=== PATIENT | male | born 1945 | race Caucasian/White ===

== ENCOUNTER 2020-06-11 18:50 | Inpatient (IN) | payer MEDICARE, OTHER ==
[2020-06-11 19:10] LABS: #Eosinphils 0.1 thou/uL (0.0-0.7); #Lymphocytes 1.3 thou/uL (1.20-3.40); #Monocytes 1.2 thou/uL (0.11-0.59); #Neutrophils 14.5 thou/uL (1.40-6.50); %Basophils 0.2 % (0.0-1.0); %Eosinophils 0.3 % (0.0-10.0); %Lymphocytes 7.7 % (21.0-51.0); %Monocytes 6.7 % (0.0-10.0); Hemoglobin 13.3 g/dL (14.0-18.0); Mean Corpuscular Hemoglobin 30.2 pg (27.0-31.0); Mean Corpuscular Volume 91.4 fL (78.0-98.0); Mean Platelet Volume 7.5 fL (7.4-10.4); Platelet Count 215 thou/uL (130-400); RBC Distribution Width 12.8 % (11.5-14.5); Red Blood Cell (RBC) Count 4.42 mill/uL (4.70-6.10); White Blood Cell (WBC) Count 17.1 thou/uL (4.8-10.8)
--- NOTE | 2020-06-11 19:14 | RAD ---
RIGHT WRIST TWO VIEWS: 06/11/20 HISTORY: Fell from a ladder. There is a comminuted intra-articular fracture of the distal radius and an associated ulnar styloid f racture. The distal radial fracture is minimally displaced. No significant angulation. IMPRESSION: Distal radial and ulnar styloid fractures. POS: CRISTIN
[2020-06-11 19:19] LABS: INR-International Normal Ratio 1.2; Prothrombin Time 15.3 sec (12.0-14.7)
--- NOTE | 2020-06-11 19:19 | RAD ---
PORTABLE CHEST: 06/11/20 HISTORY: Patient fell from a ladder. Epigastric and left upper quadrant abdomen pain, abdomen distended. Patie nt has a splenic laceration and liver laceration by history. Previous CT is not available for compari son. Heart size appears slightly enlarged. There is left sided rib fractures of the 4th, 5th, 6th, and 7th ribs possibly also the 8th rib. No pneumothorax. Film is of suboptimal inspiration. Some increased l tien markings in both lung anne could be on the basis of pulmonary contusion. Infiltrates are not ex cluded. IMPRESSION: 1. Cardiomegaly. 2. Left sided rib fractures. No pneumothorax identified. 3. Parenchymal lung changes probably on the basis of poor inspiration but contusion or infiltrat es are not excluded. POS: CRISTIN
[2020-06-11] MEDS ORDERED: Cyclobenzaprine 10 MG TAB ONE (19:20)
[2020-06-11 19:24] LABS: Bilirubin Negative (Negative); Blood, Urine Trace (Negative); Clarity Clear (Clear); Glucose, Urine (Dipstick) Normal (Negative); Ketone, Urine Negative (Negative); Leukocyte Negative Leu/uL (Negative); Nitrite Negative (Negative); Protein, Urine (Dipstick) 20 mg/dL (Neg-Trace); Squamous Epithelial 0-3 HPF (0-3); Urobilinogen Normal mg/dL (Less than 2); pH, Urine 5.5 (5.0-9.0)
[2020-06-11 19:30] LABS: ALT (SGPT) 29 U/L (8-55); AST (SGOT) 41 U/L (5-34); Albumin 3.7 g/dL (3.4-4.8); Alkaline Phosphatase 62 U/L (40-110); Anion Gap 13 mmol/L (10-20); BUN (Urea Nitrogen) 13 mg/dL (8.4-25.7); Bilirubin, Total 0.5 mg/dL (0.2-1.2); Calc. Creatinine Clearance 0 mL/min (70-130); Calcium 8.2 mg/dL (7.8-10.44); Carbon Dioxide 19 mmol/L (23-31); Chloride 112 mmol/L (98-107); Globulin 2.9 g/dL (2.4-3.5); Glucose 110 mg/dL (83-110); Potassium 4.3 mmol/L (3.5-5.1); Protein, Total 6.6 g/dL (5.8-8.1); Sodium 140 mmol/L (136-145)
[2020-06-11 19:31] LABS: Specific Gravity, Urine 1.056 (1.002-1.036)
[2020-06-11 19:32] LABS: Bacteria/HPF None Seen HPF (None Seen); Transitional Epithelial 0-3 HPF (None Seen)
[2020-06-11] MEDS ORDERED: Diazepam 5 MG TAB ONE (19:50)
[2020-06-11] MEDS ORDERED: Dextrose 50% Abboject 50 ML SYRINGE SLOW IVP PRN (20:16)
[2020-06-11] MEDS ORDERED: Ondansetron ODT 4 MG TAB PO PRN (20:16)
[2020-06-11] MEDS ORDERED: Dextrose 5% in Water 1,000 ML IV PRN (20:16)
[2020-06-11] MEDS ORDERED: Ondansetron PF 4 MG/2 ML Vial IVP PRN (20:16)
[2020-06-11] MEDS: Sodium Chloride 0.9% 1,000 ML IV SCH (20:36)
[2020-06-11 20:46] LABS: Hemoglobin 12.4 g/dL (14.0-18.0)
[2020-06-11] MEDS: Gabapentin 300 MG CAP PO SCH (20:58)
[2020-06-11] MEDS ORDERED: Famotidine 20 MG TAB ONE (21:07)
[2020-06-11] MEDS ORDERED: Acetaminophen 325 MG TAB ONE (21:07)
[2020-06-11] MEDS: Famotidine 20 MG TAB PO SCH (21:09)
[2020-06-11] MEDS: Acetaminophen 325 MG TAB PO SCH (21:09)
--- NOTE | 2020-06-11 21:38 | HP ---
REQUESTING PHYSICIAN: Dr. Silverman. ATTENDING SURGEON: Dr. Gonsalves. CONSULTATIONS: Orthopedics, Dr. Bhatia. HISTORY OF PRESENT ILLNESS: The patient is a 75-year-old man who was flown here by air ambulance from [place] after a fall from a ladder that was up on 5 foot deck and he was approximately 3 feet up on the ladder. He lost his balance, fell, hit the railing and then landed on the ground. He was brought to the emergency department at [facility] in [place], where he underwent evaluation. On examination, he was noted to have multiple left-sided rib fractures, small amount of free fluid in his abdomen and suspected grade 1 spleen and liver lacerations. At which time, he was brought to our facility as a level 2 trauma activation. Prior to him departing [place], it was noted that his blood pressure dropped and he received 2 units of packed red blood cells. Since receiving the blood products, his vital signs have remained stable. He denies loss of consciousness and reportedly had a [place] Coma Scale of 15 on the scene and has since remained that way. ALLERGIES: NONE. CURRENT MEDICATIONS: The patient reports that he does not have his list with him and that his is bringing it, but he only takes an aspirin regarding blood thinners, takes blood pressure medicine and a prostate medicine. PAST MEDICAL HISTORY: Hypertension, bladder cancer, BPH, Agent [place] exposure and PTSD. PAST SURGICAL HISTORY: Multiple bladder tumor removals, cataract surgery, bilateral rotator cuff surgeries, rhinoplasty, incision and drainage of MRSA on the thigh, spinal stenosis decompression, and cardiac stent. SOCIAL HISTORY: The patient lives at home with his spouse. He quit smoking greater than 40 years ago. Occasional alcohol and no drugs. REVIEW OF SYSTEMS: A 10-point review of systems is negative except otherwise stated. PHYSICAL EXAMINATION: VITAL SIGNS: Blood pressure 122/74, heart rate 79, respirations 20, oxygen saturation 100% on room air, and temperature is 97.9. GENERAL: The patient is resting comfortably in bed. He is awake, alert, conversant, appropriate. [place] Coma Scale is 15. HEENT: Head is normocephalic and atraumatic. Eyes, extraocular motion intact. PERRLA bilaterally. Ears are atraumatic without discharge. Nose is atraumatic without discharge. Oropharynx is clear. NECK: Nontender. Trachea is midline with no JVD. CHEST: Clear to auscultation with good inspiratory and expiratory effort. HEART: Regular rate and rhythm. ABDOMEN: Soft, flat, nontender with no gross peritoneal signs. Positive bowel sounds. Left lateral chest wall has tenderness to palpation consistent with his fractures. PELVIS: Stable. EXTREMITIES: Neurovascularly intact x4. Right upper extremity has a dorsal splint in place. BACK: Atraumatic and nontender to the midline. He does have posterior lateral left-sided pain consistent with his rib fractures. LABORATORY FINDINGS: White blood cell count 17.1, hemoglobin 13.3, hematocrit 40.4, platelets 215. Sodium 140, potassium 4.3, chloride 112, CO2 of 19, BUN 13, creatinine 1.30, glucose 110. LFTs are unremarkable. INR 1.2. Urinalysis: Rbc's 11 to 20, wbc's 7 to 10, no bacteria, no nitrite or LE. RADIOGRAPHIC REPORTS: AP chest x-ray shows cardiomegaly, left-sided rib fractures, no pneumothorax. Parenchymal lung changes probably on the basis of poor inspiration, but contusion or infiltrate are not excluded. Views of the right wrist show distal radius and ulnar styloid fractures with articular component. CT of the brain without contrast shows no acute intracranial process. CT of the C-spine without contrast shows no significant CT evidence of acute intracranial or cervical spine injury. CT of the chest, abdomen, and pelvis with IV contrast shows heterogeneous free fluid demonstrated adjacent to the spleen. However, no clearly identifiable active extravasation is present on this exam. FINDINGS: 1. Suspicious for possible splenic laceration with adjacent hemorrhage. Free fluid also surrounds the liver. However, no clearly identifiable hepatic laceration or active extravasation is noted. 2. Minimally displaced posterior left 6th through 8th rib fractures. 3. Multiple chronic findings. ASSESSMENT: 1. Status post fall from approximately 8 feet. 2. Left ribs 6 through 8 fractures. 3. Intraabdominal free fluid with suspicion for splenic and liver injuries. 4. Acute blood loss anemia, received 2 units of packed red blood cells at [facility]. 5. Acute pain secondary to above. 6. Right distal radius and ulnar fracture. PLAN: 1. Plan will be to admit the patient to the surgical floor. We will do pain control, pulmonary toilet, gastritis and mechanical VTE prophylaxis. 2. We will keep the patient n.p.o. with the exception of sips for p.o. medications, serial hemoglobin and hematocrit throughout the night. Gentle hydration. Orthopedic consultation and await their decision if this requires surgery. Tomorrow, we will begin physical and occupational therapy and discuss placement at that time. The patient was evaluated in the emergency department with Dr. Gonsalves. Job ID: [id number]
[2020-06-11] MEDS: Ketorolac Tromethamine 30 MG/ML VIAL IVP SCH (22:28)
[2020-06-11] MEDS: traMADol HCl 50 MG TAB PO SCH (22:29)
[2020-06-11] MEDS: traMADol HCl 50 MG TAB PO PRN (22:29)
[2020-06-11 22:50] VITALS: BMI 26.4
[2020-06-12 05:09] LABS: #Basophils 0.1 thou/uL (0.0-0.2); #Eosinphils 0.2 thou/uL (0.0-0.7); #Lymphocytes 1.7 thou/uL (1.20-3.40); #Monocytes 1.3 thou/uL (0.11-0.59); #Neutrophils 7.2 thou/uL (1.40-6.50); %Basophils 0.6 % (0.0-1.0); %Lymphocytes 15.9 % (21.0-51.0); %Monocytes 12.5 % (0.0-10.0); Hemoglobin 11.5 g/dL (14.0-18.0); Mean Corpuscular HGB CONC 33.8 g/dL (32.0-36.0); Mean Corpuscular Hemoglobin 31.4 pg (27.0-31.0); Mean Corpuscular Volume 92.8 fL (78.0-98.0); Mean Platelet Volume 7.6 fL (7.4-10.4); Platelet Count 162 thou/uL (130-400); RBC Distribution Width 12.9 % (11.5-14.5); Red Blood Cell (RBC) Count 3.67 mill/uL (4.70-6.10); White Blood Cell (WBC) Count 10.4 thou/uL (4.8-10.8)
[2020-06-12 05:32] LABS: ALT (SGPT) 24 U/L (8-55); AST (SGOT) 33 U/L (5-34); Albumin 3.3 g/dL (3.4-4.8); Alkaline Phosphatase 49 U/L (40-110); BUN (Urea Nitrogen) 14 mg/dL (8.4-25.7); Bilirubin, Total 0.4 mg/dL (0.2-1.2); Calc. Creatinine Clearance 57 mL/min (70-130); Calcium 7.7 mg/dL (7.8-10.44); Carbon Dioxide 19 mmol/L (23-31); Chloride 113 mmol/L (98-107); Globulin 2.4 g/dL (2.4-3.5); Glucose 93 mg/dL (83-110); Magnesium 1.8 mg/dL (1.6-2.6); Phosphorus 3.5 mg/dL (2.3-4.7); Potassium 4.1 mmol/L (3.5-5.1); Protein, Total 5.7 g/dL (5.8-8.1); Sodium 141 mmol/L (136-145)
[2020-06-12] MEDS: Acetaminophen 325 MG TAB PO SCH ×4 (05:40→20:32)
[2020-06-12] MEDS: traMADol HCl 50 MG TAB PO SCH ×4 (05:41→23:35)
[2020-06-12] MEDS: traMADol HCl 50 MG TAB PO PRN ×3 (05:41→17:26)
[2020-06-12] MEDS: Ketorolac Tromethamine 30 MG/ML VIAL IVP SCH (05:42)
[2020-06-12] MEDS: Sodium Chloride 0.9% 1,000 ML IV SCH (05:44)
[2020-06-12 05:55] LABS: Anion Gap 10 mmol/L (10-20)
--- NOTE | 2020-06-12 07:53 | RAD ---
RADIOGRAPH CHEST 1 VIEW: DATE: 06/12/2020 TIME: 7:29 AM HISTORY: 75-year-old male status post acute chest trauma, fall from ladder. Follow-up pulmonary contusion. COMPARISON: 06/11/2020 FINDINGS: Slightly displaced fractures of left posterior lateral fourth, fifth, sixth, and seventh ribs again n oted. Mild ill-defined faint pulmonary densities on the left may represent pulmonary contusions. No pneumot horax or cardiomegaly. Lateral costophrenic angles are sharp. Allowing for deeper inspiration on the current study, there is probably no interval change. IMPRESSION: 1) multiple acute, traumatic, mildly displaced left rib fractures. 2.) Mild pulmonary parenchymal densities on the left, probably mild pulmonary contusions. 3) no definite interval change.
[2020-06-12] MEDS: Famotidine 20 MG TAB PO SCH ×2 (09:23→20:31)
[2020-06-12] MEDS: Diazepam 2 MG TAB PO PRN (09:24)
[2020-06-12] MEDS: Gabapentin 300 MG CAP PO SCH ×3 (09:24→20:32)
--- NOTE | 2020-06-12 10:42 | CON ---
DATE OF CONSULTATION: CHIEF COMPLAINT: Fall from ladder. HISTORY OF PRESENT ILLNESS: Mr. Ruffin is a 75-year-old male who was flown here from [place] after a fall from a ladder. He was up approximately 8 feet. He lost his balance and fell to his left side. His left arm was under him. His right wrist was injured. He was thought to have a liver laceration, and therefore, was transferred. The patient has been hemodynamically stable. He did receive 2 units of blood prior to leaving [place]. He is complaining of left shoulder and rib pain today. Otherwise, he feels good. ALLERGIES: NONE. MEDICATIONS: The patient takes; 1. Aspirin. 2. Blood pressure medication. 3. Prostate medication. PAST MEDICAL HISTORY: Hypertension, history of bladder cancer, BPH, PTSD. PAST SURGICAL HISTORY: Bladder tumor removal, cataract surgery, rotator cuff surgeries bilaterally, rhinoplasty, MRSA infection drainage, spinal stenosis decompression, and cardiac stent placement. SOCIAL HISTORY: The patient lives at home. He denies tobacco, alcohol, or drug use. REVIEW OF SYSTEMS: Positive for left shoulder pain and posterior chest wall pain. Otherwise, he denies 10-point review of systems. PHYSICAL EXAMINATION: VITAL SIGNS: Temperature is 97.8, pulse is 63, respiratory rate of 16, blood pressure 114/69. GENERAL: He is alert, oriented, in no apparent distress, lying supine. HEENT: Normocephalic and atraumatic. RESPIRATORY: Breathing comfortably. ABDOMEN: Soft, nontender, nondistended. MUSCULOSKELETAL: The patient has severe pain in the left shoulder with any movement. His hand and wrist are neurovascularly intact with palpable radial pulses. His right wrist is splinted. His hand is warm and well perfused. The lower extremities are atraumatic. IMAGING: Right wrist x-rays demonstrate a minimally displaced distal radial fracture, which is extra-articular. Left shoulder x-rays are pending. Chest x-ray demonstrates possible left-sided rib fractures, these are difficult to visualize, however. Reportedly, he has a CT scan that has demonstrated posterior left rib fractures, multiple. IMPRESSION: Status post fall from ladder with left posterior rib fractures, right distal radius fracture with minimal displacement, and liver and spleen laceration. PLAN: At this point, the patient can mobilize out of bed. He can continue his current splint for his right arm, we may change this tomorrow if it is fitting poorly. He will be treated nonoperatively for his distal radius. We would recommend repeat x-ray in approximately 1 week to ensure that he has had no further displacement. I will order left shoulder x-rays to be sure he does not have a shoulder injury. I think his pain is likely coming from his rib fractures at this point. We will continue to follow. Job ID: [id number]
--- NOTE | 2020-06-12 11:25 | RAD ---
LEFT SHOULDER 2 VIEWS: Date: 06/12/2020 AP projections are inadequate. An internally rotated view only was obtained. HISTORY: injury with pain FINDINGS: Postoperative changes are noted with two radiopaque anchors overlying the humeral head. AC joint is n ormally aligned. Humerus head is normally positioned. There are left rib fractures. Mildly displaced fracture noted involving posterolateral left fourth an d fifth ribs. IMPRESSION: No evidence of acute fracture or dislocation, although externally rotated view not obtained. Rib frac tures are noted as described on chest exam. POS: AGW
[2020-06-12] MEDS: Ibuprofen 600 MG TAB PO SCH ×2 (14:58→20:32)
--- NOTE | 2020-06-12 15:15 | PRG ---
DATE OF SERVICE: 06/12/2020 SUBJECTIVE: The patient is hospital day 2, status post fall from ladder, in which he sustained multiple left-sided rib fractures and injury to his liver and spleen. Overnight, he did well. He did have some discomfort this morning, primarily of his left shoulder, which was evaluated by Orthopedics, who ordered radiographs of his left shoulder. PHYSICAL EXAMINATION: VITAL SIGNS: Temperature 97.8, heart rate 63, blood pressure 114/69, respirations 17, oxygen saturation is 98% on room air. GENERAL: The patient is resting comfortably in bed. He did need to be adjusted in the bed itself as he was sliding out of it, which probably contributed to his ribs hurting more, but otherwise he is awake, alert, and oriented. Wil[place] Coma Scale is 15. HEENT: Unremarkable. LUNGS: Clear to auscultation, which once the patient was sat up, he was able to take much better inspiration and expiration. HEART: Regular rate and rhythm. ABDOMEN: Soft, nontender with active bowel sounds. EXTREMITIES: Neurovascularly intact x4. Right upper extremity has a dorsal splint in place. LABORATORY FINDINGS: White blood cell count 10.4, hemoglobin 11.5, hematocrit 34.0, platelets 162. Sodium 141, potassium 4.1, chloride 113, CO2 of 19, BUN 14, creatinine 1.21, glucose 93. LFTs are unremarkable. RADIOGRAPHIC FINDINGS: AP chest x-ray shows no definite interval change. Views of the left shoulder showed no evidence of fracture or dislocation. ASSESSMENT AND PLAN: 1. Status post fall from ladder, approximately 8 feet. 2. Left ribs 6 through 8 fractures. 3. Intraabdominal free fluid with suspicion for splenic or liver injuries, stable. 4. Acute blood loss anemia, stable. 5. Acute pain secondary to above, we will make adjustments to his pain regimen. 6. Right distal radius and ulna fractures. Per Orthopedics, this will be treated nonoperatively. Plan will be to continue supportive care. We will begin the patient diet today. Adjust his pain medications. Transition all medications to oral. Encourage physical and occupational therapy, and tomorrow discuss placement. Of note, the patient was brought here from [place] and we will advise Case Management that he will likely need to be placed in that area also. The patient was evaluated with Dr. Gonsalves during rounds this morning. Job ID: [id number]
[2020-06-12] MEDS: Atorvastatin Calcium 20 MG TAB PO SCH (20:31)
[2020-06-12] MEDS: Senokot S 8.6-50 MG TAB PO SCH (20:31)
[2020-06-12] MEDS: Tamsulosin HCl 0.4 MG CAP PO SCH (20:32)
[2020-06-13] MEDS: Diazepam 2 MG TAB PO PRN ×2 (00:57→11:10)
[2020-06-13] MEDS: Acetaminophen 325 MG TAB PO SCH ×4 (02:37→20:15)
[2020-06-13] MEDS: Ibuprofen 600 MG TAB PO SCH ×4 (02:38→20:16)
[2020-06-13] MEDS: traMADol HCl 50 MG TAB PO SCH ×4 (06:00→23:24)
[2020-06-13] MEDS ORDERED: Aspirin 81 mg Enteric Coated Tablet PO SCH (09:00)
[2020-06-13] MEDS: Gabapentin 300 MG CAP PO SCH ×3 (09:09→20:15)
[2020-06-13] MEDS: Amlodipine 10 MG TAB PO SCH (09:09)
[2020-06-13] MEDS: Famotidine 20 MG TAB PO SCH ×2 (09:09→20:14)
[2020-06-13] MEDS: Pramipexole Di-HCl 0.25 MG TAB PO SCH (09:09)
[2020-06-13] MEDS: Senokot S 8.6-50 MG TAB PO SCH ×2 (09:10→20:14)
[2020-06-13] MEDS: Polyethylene Glycol 3350 17 GM Packet PO SCH (09:10)
[2020-06-13] MEDS: Febuxostat 40 MG TAB PO SCH (09:10)
--- NOTE | 2020-06-13 14:08 | PRG ---
DATE OF SERVICE: 06/13/2020 SUBJECTIVE: The patient is on hospital day #3, status post fall from ladder. He sustained multiple left-sided rib fractures with injury to liver and spleen. Overnight, he states he had a lot of pain. He felt he was having a lot of muscle spasms on left rib cage. He was unaware he had prn meds and had to ask for muscle relaxers. He was not able to work with PT due to pain. Pain has limited his use of incentive spirometer. OBJECTIVE: VITAL SIGNS: Blood pressure 128/74, heart rate 78, temperature 98.4, respirations 14, and O2 of 99% on room air. GENERAL: The patient is lying in bed with a pillow over left side of chest. Appears to wince in pain when he coughs. He is awake, alert, and oriented. GCS is 15. HEENT: Unremarkable. LUNGS: Shallow breaths noted, nonlabored. ABDOMEN: Soft, nontender. EXTREMITIES: Right upper extremity has a splint in place. LABORATORY FINDINGS: No labs done today. ASSESSMENT AND PLAN: 1. Status post fall from ladder. 2. Left ribs 6 through 8 fractures. 3. Intraabdominal free fluid with suspicion for splenic or liver injuries, stable. 4. Acute blood loss anemia, stable. 5. Acute pain secondary to above. 6. Right distal radius and ulna fractures. Per Orthopedics, nonoperative. PLAN: The patient was seen with Dr. Powers on morning rounds today. Plan is to continue supportive care with better pain control. Advised the patient that he does have muscle relaxers and additional p.r.n. pain medication available. Encouraged use of incentive spirometer. We will discontinue [place] today. [facility] [place] hometown [place], [place]. We will advise Case Management of this decision. Job ID: [id number] [facility]
--- NOTE | 2020-06-13 14:27 | PRG ---
DATE OF SERVICE: SUBJECTIVE: Robert is a 75-year-old male, who is transferred from [place] 2 days ago for a right distal radius metaphyseal fracture treated closed and left shoulder pain. He has had a prior rotator cuff repair and he has been having problems with this and is unaware that it needs to be revised. Radiographs obtained of the left shoulder demonstrate one of his anchors to be in the subacromial space, the other apparently in bone. Dr. Bhatia has elected to treat the distal radius fracture, closed. OBJECTIVE: He is alert and oriented to person, place, time, and situation and responsive. He has a little bit of tenderness with palpation over the right distal radius abnormality. IMAGING STUDIES: Two views, right distal radius demonstrates a non-angulated Colles fracture variant with some comminution dorsally. No gross shortening, but he has lost a little bit of the radial inclination. Left shoulder radiographs demonstrate two rotator cuff metallic anchors, one of which appears to be in the subacromial space. IMPRESSION: A 75-year-old male, status post fall with right distal radius metaphyseal fracture and left shoulder rotator cuff arthropathy, which is acute on chronic. PLAN: 1. The patient placed in a right sugar-tong splint to control rotation as well as flexion extension. At some point, he will probably transfer back to [place] where is from and he may follow up with Orthopedics there. 2. Disposition per Trauma Team. Continue close treatment. See procedure note for sugar-tong placement. Job ID: [id number]
--- NOTE | 2020-06-13 14:33 | OP ---
DATE OF PROCEDURE: 06/13/2020 PREPROCEDURE DIAGNOSIS: Right distal radius metaphyseal fracture. POSTPROCEDURE DIAGNOSIS: Right distal radius metaphyseal fracture. PROCEDURE PERFORMED: Sugar-tong splint placement, right forearm. ANESTHESIA: None. DESCRIPTION OF PROCEDURE: After informed consent was obtained, the patient was positioned appropriately. The elbow was flexed to 90 degrees. A stockinette was placed over wrapped with Webril and then a sugar-tong ortho splint was then placed and wrapped with two 4-inch Aces. The patient tolerated the procedure well without any complications. He remained neurovascularly intact both before, during and after. We will continue close treatment. He may disposition back to [place] and someone will arrange for orthopedic followup care there. Otherwise, I will provide him with a clinic visit here for follow on continuity. Job ID: [id number]
[2020-06-13] MEDS: Tamsulosin HCl 0.4 MG CAP PO SCH (20:15)
[2020-06-13] MEDS: Atorvastatin Calcium 20 MG TAB PO SCH (20:15)
[2020-06-14] MEDS: Diazepam 2 MG TAB PO PRN ×2 (00:26→09:42)
[2020-06-14] MEDS: Acetaminophen 325 MG TAB PO SCH ×4 (03:17→22:01)
[2020-06-14] MEDS: Ibuprofen 600 MG TAB PO SCH ×4 (03:18→22:00)
[2020-06-14] MEDS: traMADol HCl 50 MG TAB PO SCH ×4 (06:22→23:20)
[2020-06-14] MEDS: Gabapentin 300 MG CAP PO SCH ×3 (09:36→22:00)
[2020-06-14] MEDS: Febuxostat 40 MG TAB PO SCH (09:36)
[2020-06-14] MEDS: Amlodipine 10 MG TAB PO SCH (09:36)
[2020-06-14] MEDS: Famotidine 20 MG TAB PO SCH (09:36)
[2020-06-14] MEDS: Aspirin 81 mg Enteric Coated Tablet PO SCH ×2 (09:36→22:00)
[2020-06-14] MEDS: Polyethylene Glycol 3350 17 GM Packet PO SCH (09:37)
[2020-06-14] MEDS: Senokot S 8.6-50 MG TAB PO SCH ×2 (09:37→22:00)
[2020-06-14] MEDS: Pramipexole Di-HCl 0.25 MG TAB PO SCH (09:37)
[2020-06-14] MEDS ORDERED: Cyclobenzaprine 10 MG TAB PO PRN (10:39)
[2020-06-14] MEDS ORDERED: oxyCODONE 5 MG TAB PO SCH ×2 (10:45→14:00)
--- NOTE | 2020-06-14 15:47 | PRG ---
DATE OF SERVICE: SUBJECTIVE: Robert is a 75-year-old male, hospital day 3 for a right distal radius fracture and multiple rib fractures on the left. He also had splenic laceration and liver laceration, which he is being followed by the Trauma team. He did have a bowel movement earlier today. He has voided, but he still carries fair amount of gas in the abdomen. OBJECTIVE: Tympany to percussion is noted, but normoactive bowel sounds are appreciated. He is nontender. He just looks uncomfortable. Otherwise, the splint is intact. He has good neurovascular status in the right upper extremity with full digital excursion. Left shoulder limited range of motion due to underlying rib fractures and discomfort. IMPRESSION: 1. A 75-year-old male, hospital day 3 for multiple left rib fractures, right distal radius metaphyseal fracture, liver laceration and splenic laceration, all treated closed. 2. New onset constipation, but keep an eye on this so it does not turn into an ileus. PLAN: Liquid diet as I have discussed with him at bedside this afternoon and lactulose and Dulcolax as needed. I would like him to ambulate more to encourage bowel movements and platform walker has been discussed with physical therapy as well as a sling for the right upper extremity. Job ID: [id number]
[2020-06-14] MEDS: Atorvastatin Calcium 20 MG TAB PO SCH (22:00)
[2020-06-14] MEDS: Tamsulosin HCl 0.4 MG CAP PO SCH (22:00)
--- NOTE | 2020-06-15 00:40 | PRG ---
DATE OF SERVICE: 06/14/2020 SUBJECTIVE: The patient was seen this evening during rounds. He was sitting up in bed, resting comfortably and asleep with no signs of acute distress. Nursing reports no acute events. OBJECTIVE: VITAL SIGNS: Temperature 98.1, pulse 80, respirations 19, oxygen saturation 96% on room air, blood pressure 131/67. ASSESSMENT: 1. Status post fall from ladder. 2. Left-sided ribs 6 through 8 fractures. 3. Hemoperitoneum with suspected low-grade splenic or liver laceration. 4. Right distal radius and ulnar fracture. 5. History of hypertension, bladder cancer, benign prostatic hypertrophy, post traumatic stress disorder, agent [place] exposure. PLAN: Continue current diet and pain regimen. Continue physical and occupational therapy. Discontinue Pepcid. Start the patient's home PPI. Continue supportive care. The patient is pending discharge to rehab facility near [place]. He is ready for discharge at this time. Job ID: [id number]
[2020-06-15] MEDS: Acetaminophen 325 MG TAB PO SCH ×4 (05:08→21:21)
[2020-06-15] MEDS: Ibuprofen 600 MG TAB PO SCH ×4 (05:08→21:22)
[2020-06-15] MEDS: traMADol HCl 50 MG TAB PO SCH ×3 (05:08→17:04)
--- NOTE | 2020-06-15 05:46 | PRG ---
DATE OF SERVICE: 06/14/2020 SUBJECTIVE: This patient is a 75-year-old male on hospital day #4, status post fall from ladder. He sustained multiple left-sided rib fractures and a right distal radius fracture. Upon entering the room, he was just finishing working with PT and stated he had a lot of pain. Complains of having multiple muscle spasms of left rib cage. He also complained of having difficulty using his urinal and incentive spirometer. Did report that he was able to get several hours of uninterrupted sleep last night. OBJECTIVE: VITAL SIGNS: Blood pressure is 127/68, pulse 95, temperature 98.4, respiratory rate 16, O2 saturation 97% on room air. HEENT: Unremarkable. LUNGS: Nonlabored, equal chest rise. ABDOMEN: Soft, nondistended. EXTREMITIES: Right upper extremity has a splint in place. GENERAL: The patient was standing when we entered the room, having just finished working with PT. He is holding a pillow over the left side of his chest. He continues to complain of pain. He is awake, alert, and oriented. GCS is 15. LABORATORY FINDINGS: No new labs done overnight. ASSESSMENT: 1. Status post fall from ladder. 2. Left ribs 6 through 8 fractures. 3. Right distal radius and ulna fractures. Per Orthopedics, nonoperative. 4. Intraabdominal free fluid with suspicion for splenic or liver injuries, stable. 5. Acute blood loss anemia, stable. 6. Acute pain secondary to above. PLAN: The patient was seen and evaluated with Dr. Gonsalves on morning rounds today. Plan is to continue supportive care including adjusting medications for better pain control. We will add in scheduled pain med 30 minutes prior to participation with PT. Encouraged continued use of incentive spirometer. Plan is for patient to go to either inpatient rehab or nursing home. The patient would like to be placed somewhere near his hometown of [place], [place]. Case Management is aware of this decision and is working on his placement. Job ID: [id number]
[2020-06-15 06:22] LABS: #Eosinphils 0.4 thou/uL (0.0-0.7); #Neutrophils 6.5 thou/uL (1.40-6.50); %Basophils 0.4 % (0.0-1.0); %Eosinophils 4.7 % (0.0-10.0); %Lymphocytes 11.5 % (21.0-51.0); %Monocytes 11.4 % (0.0-10.0); %Neutrophils 72.1 % (42.0-75.0); Hemoglobin 10.3 g/dL (14.0-18.0); Mean Corpuscular HGB CONC 33.8 g/dL (32.0-36.0); Mean Corpuscular Hemoglobin 31.4 pg (27.0-31.0); Mean Platelet Volume 7.7 fL (7.4-10.4); Platelet Count 140 thou/uL (130-400); RBC Distribution Width 12.7 % (11.5-14.5); Red Blood Cell (RBC) Count 3.27 mill/uL (4.70-6.10); White Blood Cell (WBC) Count 8.9 thou/uL (4.8-10.8)
[2020-06-15 06:36] LABS: Anion Gap 11 mmol/L (10-20); BUN (Urea Nitrogen) 15 mg/dL (8.4-25.7); Calc. Creatinine Clearance 62 mL/min (70-130); Calcium 8.6 mg/dL (7.8-10.44); Carbon Dioxide 26 mmol/L (23-31); Chloride 103 mmol/L (98-107); Glucose 86 mg/dL (83-110); Magnesium 2.1 mg/dL (1.6-2.6); Phosphorus 3.3 mg/dL (2.3-4.7); Potassium 4.4 mmol/L (3.5-5.1); Sodium 136 mmol/L (136-145)
[2020-06-15] MEDS: Polyethylene Glycol 3350 17 GM Packet PO SCH (08:09)
[2020-06-15] MEDS: Febuxostat 40 MG TAB PO SCH (08:10)
[2020-06-15] MEDS: Gabapentin 300 MG CAP PO SCH ×3 (08:11→21:21)
[2020-06-15] MEDS: Aspirin 81 mg Enteric Coated Tablet PO SCH ×2 (08:11→21:21)
[2020-06-15] MEDS: Pramipexole Di-HCl 0.25 MG TAB PO SCH (08:11)
[2020-06-15] MEDS: Senokot S 8.6-50 MG TAB PO SCH ×2 (08:12→21:28)
[2020-06-15] MEDS: Amlodipine 10 MG TAB PO SCH (08:12)
[2020-06-15] MEDS ORDERED: oxyCODONE 5 MG TAB PO SCH (09:00)
[2020-06-15] MEDS ORDERED: oxyCODONE 5 MG TAB PO PRN (09:00)
--- NOTE | 2020-06-15 12:25 | PRG ---
DATE OF SERVICE: 06/15/2020 SUBJECTIVE: Robert is a 75-year-old male, hospital day 4 for a right distal radius metaphyseal fracture with left rib fractures. He is still having gas, but he still has some distention in abdomen. He has been consuming mostly liquids. OBJECTIVE: VITAL SIGNS: Temperature 98, pulse 75, respiratory rate is 18 and nonlabored, O2 saturation is 100% on room air, blood pressure is 120/69. GENERAL: He is alert, responsive, appropriate. ABDOMEN: Demonstrates tympany to percussion, but normoactive bowel sounds. EXTREMITIES: His splint is intact in the right upper extremity. IMPRESSION: 1. A 75-year-old male, hospital day 4 for right distal radius metaphyseal fracture, treated closed. 2. Left-sided rib fractures. 3. Mild constipation. PLAN: Continue to follow. Continue to check splint daily. Transfer to closer to home when facility is ready to receive. Job ID: [id number]
[2020-06-15] MEDS: Cyclobenzaprine 10 MG TAB PO PRN (21:20)
[2020-06-15] MEDS: Atorvastatin Calcium 20 MG TAB PO SCH (21:21)
[2020-06-15] MEDS: Tamsulosin HCl 0.4 MG CAP PO SCH (21:21)
[2020-06-15] MEDS ORDERED: Acetaminophen/Codeine 30-300mg Tablet PO PRN (21:38)
[2020-06-15] MEDS ORDERED: Acetaminophen/Codeine 30-300mg Tablet PO SCH (22:00)
[2020-06-15] MEDS ORDERED: Acetaminophen 325 MG TAB PO SCH (22:00)
[2020-06-15] MEDS ORDERED: Lidocaine 5% Patch TD SCH (23:15)
[2020-06-15] MEDS: Morphine 4 MG/ML VIAL SLOW IVP PRN (23:25)
--- NOTE | 2020-06-15 23:33 | PRG ---
DATE OF SERVICE: 06/15/2020 SUBJECTIVE: The patient was seen this evening during rounds. Nursing called earlier to express that the patient was having some chest wall pain and he also reports he was feeling anxious. Upon my evaluation, the patient reports that his pain is 8/10. He reports that he is unable to get out of bed by himself and he thinks he overdid it with Physical Therapy. He has no signs of acute respiratory distress. Otherwise, nursing has no acute events. OBJECTIVE: VITAL SIGNS: Temperature 98.1, pulse 74, respirations 18, oxygen saturation 94% on room air, blood pressure 124/71. ASSESSMENT: 1. Status post fall from ladder. 2. Left-sided ribs 6 through 8 fractures. 3. Hemoperitoneum with suspicion of low-grade splenic versus liver laceration, stable. 4. Right distal radius and ulnar fracture. 5. History of hypertension, bladder cancer, BPH, posttraumatic stress disorder, and agent [place] exposure. PLAN: Continue current diet. Discontinue tramadol and oxycodone. Change Tylenol No. 3 one tablet scheduled q.6 hours with an additional tablet p.r.n. for pain. We will also add Lidoderm patches. The patient has maximized his adjunctive medications. If patient's pain is not better controlled on current regimen, we will consider changing him to oxycodone in the morning time. Continue incentive spirometry and aggressive pulmonary hygiene. The patient is pending discharge to acute rehab facility in [place]. Job ID: [id number]
[2020-06-16] MEDS: Acetaminophen 325 MG TAB PO SCH ×4 (03:27→20:58)
[2020-06-16] MEDS: Morphine 4 MG/ML VIAL SLOW IVP PRN (03:28)
[2020-06-16] MEDS: Ibuprofen 600 MG TAB PO SCH ×4 (03:28→20:59)
[2020-06-16 05:59] LABS: #Eosinphils 0.5 thou/uL (0.0-0.7); #Lymphocytes 1.1 thou/uL (1.20-3.40); #Monocytes 1.1 thou/uL (0.11-0.59); #Neutrophils 6.2 thou/uL (1.40-6.50); %Basophils 0.3 % (0.0-1.0); %Eosinophils 5.8 % (0.0-10.0); %Lymphocytes 12.3 % (21.0-51.0); %Neutrophils 69.5 % (42.0-75.0); Hemoglobin 10.7 g/dL (14.0-18.0); Mean Corpuscular HGB CONC 33.2 g/dL (32.0-36.0); Mean Corpuscular Hemoglobin 30.5 pg (27.0-31.0); Mean Corpuscular Volume 92.1 fL (78.0-98.0); Mean Platelet Volume 7.9 fL (7.4-10.4); Platelet Count 177 thou/uL (130-400); RBC Distribution Width 12.7 % (11.5-14.5); Red Blood Cell (RBC) Count 3.49 mill/uL (4.70-6.10); White Blood Cell (WBC) Count 8.9 thou/uL (4.8-10.8)
[2020-06-16] MEDS: Acetaminophen/Codeine 30-300mg Tablet PO SCH ×4 (06:08→23:37)
--- NOTE | 2020-06-16 06:22 | PRG ---
DATE OF SERVICE: 06/15/2020 SUBJECTIVE: The patient is a 75-year-old male on hospital day #5, status post fall from ladder. He sustained multiple left-sided rib fractures and right distal radius fractures. The patient was sitting in a recliner with a pillow on his lap. He had just finished working with PT and was having minimal pain. He stated that the new pain regimen that was implemented has helped him. He also stated he is tolerating diet, but has not had a bowel movement yet. OBJECTIVE: VITAL SIGNS: Blood pressure 120/69, pulse 75, temperature 98, respiratory rate 18, oxygen saturation 100% on room air. HEENT: Unremarkable. LUNGS: Nonlabored breathing. Equal chest rise. ABDOMEN: Soft, nondistended. EXTREMITIES: Right upper extremity has a splint in place. GENERAL: The patient is awake, alert, and oriented. He appears uncomfortable. GCS 15. LABORATORY FINDINGS: No new labs done overnight. ASSESSMENT: 1. Status post fall from ladder. 2. Left ribs 6 through 8 fractures. 3. Right distal radius and ulna fractures. Per Orthopedics, nonoperative. 4. Intraabdominal free fluid with Suspicion for splenic or liver injuries, stable. 5. Acute blood loss anemia, stable. 6. Acute pain secondary to above. PLAN: Continue supportive care. Encourage patient to continue using incentive spirometer. Encourage to continue to work with PT, OT. Plan is for patient to go to inpatient rehab in [place], [place] which is where he is from. Case Management has put in the request and we are waiting to hear back. This patient was examined with Dr. Gonsalves on morning rounds today. Job ID: [id number] [facility]
[2020-06-16] MEDS: Aspirin 81 mg Enteric Coated Tablet PO SCH ×2 (08:12→20:58)
[2020-06-16] MEDS: Pramipexole Di-HCl 0.25 MG TAB PO SCH (08:12)
[2020-06-16] MEDS: Amlodipine 10 MG TAB PO SCH (08:13)
[2020-06-16] MEDS: Gabapentin 300 MG CAP PO SCH ×3 (08:14→20:59)
[2020-06-16] MEDS: Cyclobenzaprine 10 MG TAB PO PRN ×2 (08:14→17:39)
[2020-06-16] MEDS: Polyethylene Glycol 3350 17 GM Packet PO SCH (08:15)
[2020-06-16] MEDS: Senokot S 8.6-50 MG TAB PO SCH ×2 (08:15→22:11)
[2020-06-16] MEDS: Febuxostat 40 MG TAB PO SCH (08:17)
--- NOTE | 2020-06-16 16:53 | PRG ---
DATE OF SERVICE: 06/16/2020 SUBJECTIVE: The patient was seen during morning rounds with Dr. Gonsalves. This is a 75-year-old gentleman, hospital day #6 status post fall from ladder. The patient sustained multiple left-sided rib fractures and a right distal radius fracture which is nonoperative and treated with a splint. The patient is currently sitting up in the chair, in no distress. The patient's pain has improved this morning. The patient did have increased pain overnight and had to have his medications changed. The patient continues to work with Physical Therapy. He is ambulating without any difficulties. He continues to tolerate a diet. The patient's urinary output is adequate for age and weight. The patient is having bowel movements. It was discovered that the patient was COVID positive at the transferring facility, which was never relayed. The patient was initially accepted to a rehab facility in [place], but now wants the patient to be 10 days out from his positive test and will not take the patient until the . The patient and spouse feel the patient is safe for discharge home with home health. OBJECTIVE: VITAL SIGNS: Temperature 97.8, pulse 67, respirations 16, SpO2 of 96% on room air, blood pressure 122/64. GENERAL: Elderly male, awake, alert, in no distress. HEENT: Unremarkable. RESPIRATORY: Good inspiratory and expiratory effort, respirations are even and nonlabored. ABDOMEN: Soft, nontender. EXTREMITIES: Neurovascularly intact x4, right upper extremity with a splint in place. NEUROLOGIC: No focal deficits. LABORATORY DATA: WBC 3.49, hemoglobin 10.7, hematocrit 32.2, platelets 177. DIAGNOSTICS: No new diagnostics to review today. ASSESSMENT: 1. Status post fall from ladder. 2. Left rib fractures, 6 through 8. 3. Right distal radius and ulnar fracture, nonoperative, treated with splint. 4. Intraabdominal free fluid, suspicious for spleen or liver injury, stable. 5. Acute blood loss anemia, stable. 6. COVID-19 positive. 7. History of hypertension, bladder cancer, BPH, and post-traumatic stress disorder. PLAN: Continue supportive care and pain regimen. Increase physical and occupational therapy. Plan for discharge home tomorrow with home health, PT and OT. Job ID: [id number]
[2020-06-16] MEDS: Atorvastatin Calcium 20 MG TAB PO SCH (20:58)
[2020-06-16] MEDS: Tamsulosin HCl 0.4 MG CAP PO SCH (20:59)
[2020-06-16] MEDS ORDERED: Lidocaine 5% Patch TD SCH (21:00)
--- NOTE | 2020-06-16 23:24 | PRG ---
DATE OF SERVICE: 06/16/2020 SUBJECTIVE: The patient was seen this evening during rounds. He was sitting up in a recliner, sleeping and resting comfortably. Nursing reports pain is well controlled, but no acute events. OBJECTIVE: VITAL SIGNS: Temperature 98.3, pulse 81, respirations 18, oxygen saturation 95% on room air, and blood pressure 158/71. ASSESSMENT: 1. Status post fall from ladder. 2. Left rib 6 through 8 fracture. 3. Hemoperitoneum with possible low-grade splenic versus liver laceration. 4. Right distal radius and ulnar fracture. 5. History of hypertension, bladder cancer, BPH, and post-traumatic stress disorder. PLAN: Continue current diet and pain regimen. Continue physical and occupational therapy. Continue aggressive pulmonary hygiene and supportive care. The patient is pending discharge home tomorrow to family care. He is ready for discharge at this time. Job ID: [id number]
[2020-06-17] MEDS: Ibuprofen 600 MG TAB PO SCH ×2 (04:45→09:18)
[2020-06-17] MEDS: Acetaminophen 325 MG TAB PO SCH ×2 (04:45→09:17)
[2020-06-17] MEDS: Acetaminophen/Codeine 30-300mg Tablet PO SCH (05:11)
[2020-06-17 08:19] VITALS: BP 131/68; TEMP 98
[2020-06-17] MEDS ORDERED: Lidocaine Patch Removal 1 EACH TOP SCH (09:00)
[2020-06-17] MEDS: Gabapentin 300 MG CAP PO SCH (09:18)
[2020-06-17] MEDS: Aspirin 81 mg Enteric Coated Tablet PO SCH (09:18)
[2020-06-17] MEDS: Amlodipine 10 MG TAB PO SCH (09:18)
[2020-06-17] MEDS: Polyethylene Glycol 3350 17 GM Packet PO SCH (09:19)
[2020-06-17] MEDS: Senokot S 8.6-50 MG TAB PO SCH (09:19)
[2020-06-17] MEDS: Pramipexole Di-HCl 0.25 MG TAB PO SCH (09:19)
[2020-06-17] MEDS: Febuxostat 40 MG TAB PO SCH (10:05)
--- NOTE | 2020-06-17 11:43 | DIS ---
DATE OF ADMISSION: 06/11/2020 DATE OF DISCHARGE: 06/17/2020 CONSULTS: Orthopedic Surgery, Dr. Bhatia. PROCEDURES: None. PRIMARY DIAGNOSES: 1. Status post fall from approximately 8 feet, left rib fractures 6 through 8, intraabdominal free fluid with suspicion of splenic or liver injury, stable. 2. Acute blood loss anemia. 3. Right distal radius, ulnar fracture, nonoperative. 4. COVID-19 positive. SECONDARY DIAGNOSES: 1. Hypertension. 2. Bladder cancer. 3. BPH. 4. Agent [place] exposure. 5. Post-traumatic stress disorder. DISCHARGE MEDICATIONS: 1. Acetaminophen 325 mg p.o. q.6 hours. 2. Tylenol No. 3 one to two tablets p.o. q.6 hours, #60, no refills. 3. Norvasc 10 mg p.o. daily. 4. Aspirin 81 mg p.o. b.i.d. for 2 weeks, then the patient can resume his 81 mg daily after 2 weeks. 5. Lipitor 20 mg p.o. daily. 6. Flexeril 10 mg p.o. 3 times a day. 7. Febuxostat 80 mg p.o. daily. 8. Gabapentin 300 mg p.o. 3 times a day, #60, no refills. 9. Ibuprofen 600 mg p.o. q.6 hours p.r.n. pain. 10. Lidocaine patch 5% one patch to rib pain 12 hours on, 12 hours off, #7, no refills. 11. Protonix 20 mg p.o. daily. 12. MiraLAX as needed for constipation. 13. Mirapex 0.5 mg p.o. daily. 14. Senokot as needed for constipation. 15. Flomax 0.4 mg p.o. at bedtime. No discontinued medications. HISTORY OF PRESENT ILLNESS AND HOSPITAL COURSE: This is a 75-year-old man, who was transferred from [facility] after a fall from a ladder approximately 8 feet. The patient lost his balance causing him to fall, hitting the railing of 5-foot deck and then landed on the ground. The patient was transferred from [facility] for higher level of care. The patient did have a drop in his blood pressure at the sending facility and he received 2 units of packed red blood cells. The patient's vitals and hemoglobin remained stable during his hospital stay. The patient did not have any loss of consciousness and his GCS was 15. Orthopedic Surgery was consulted for his right distal radius, ulnar fracture and a sugar-tong splint was placed to his right forearm. The patient initially had some pain control issues and muscle spasms. The patient's pain medications were adjusted and eventually, his pain was under control. The patient was able to use his incentive spirometer without any difficulties and was able to ambulate with physical therapy. The patient ambulated over 500 feet with physical therapy yesterday. The patient is waiting to work with physical therapy again today. The patient did have an extended length of stay due to initially wanting to go home, but then realized he was not quite ready to go home. A rehab screen was then placed, and the patient was accepted to inpatient rehab in [place]. Yesterday, Case Management found out that the patient actually tested positive for COVID-19 in the [place] on the day of transfer, which was 06/11/2020. This was just relayed to the hospital staff. The patient had no symptoms or complaints. Rehab then denied and stated that the patient needed 10 days after his positive COVID results and they would not be able to take him until the 21 of June. The patient progressed with physical therapy, and the patient and decided going home with home health. On the day of discharge, the patient's exam was unremarkable. His vital signs were stable. The patient had no complaints. The patient was having bowel movements and tolerating his diet. The patient was voiding without any difficulties. The patient was deemed stable for discharge home with home health PT, OT, and assisted. DISPOSITION: Stable. DISCHARGE INSTRUCTIONS: Home with home health. DIET: Regular diet. ACTIVITY: Orthopedic limitations, weightbearing as tolerated right upper extremity, keep splint clean and dry. FOLLOWUP: Follow up with primary care physician in 14 days. Follow up with Dr. Bhatia in 7 days or Orthopedics in [place]. The patient will need a chest x-ray. [place] prescription monitoring program was accessed and appropriate. This is just a summary of the hospital stay, please see the medical record for details. Job ID: [id number]
== END 2020-06-17 10:45 | disposition home health service (06) | DRG 183 ==
LOC: ERS 18:50 → ERHOLD 19:24 → SJJU 21:40
PROVIDERS: ADMIT Surgery; ATTEND Surgery
PROC: 2W3CX1Z Immobilization of Right Lower Arm using Splint (ICD-10-PCS; principal; 2020-06-13)
DX: S22.42XA Multiple fractures of ribs, left side, initial encounter for closed fracture (principal); U07.1 COVID-19; S52.501A Unspecified fracture of the lower end of right radius, initial encounter for closed fracture; S36.113A Laceration of liver, unspecified degree, initial encounter; D62 Acute posthemorrhagic anemia; S36.039A Unspecified laceration of spleen, initial encounter; S52.201A Unspecified fracture of shaft of right ulna, initial encounter for closed fracture; W11.XXXA Fall on and from ladder, initial encounter; I10 Essential (primary) hypertension; F43.10 Post-traumatic stress disorder, unspecified; F32.9 Major depressive disorder, single episode, unspecified; N40.0 Benign prostatic hyperplasia without lower urinary tract symptoms; M19.012 Primary osteoarthritis, left shoulder; K59.00 Constipation, unspecified; Z85.51 Personal history of malignant neoplasm of bladder; Z95.5 Presence of coronary angioplasty implant and graft; Z87.891 Personal history of nicotine dependence; Z79.82 Long term (current) use of aspirin; Z79.899 Other long term (current) drug therapy
CPT/HCPCS: 36415; 71045; 80048; 80053; 81003; 81015; 83735; 84100; 85025; 85610; 85730; 94640; G0390; J1885; J2270; J7620